=== PATIENT | male | born 2000 | race Hispanic/Latino ===

== ENCOUNTER 2023-12-20 01:09 | Emergency (ER) | payer OTHER, SELFPAY ==
[2023-12-20 01:10] VITALS: BP 139/69
[2023-12-20 01:27] VITALS: BMI 25.4
[2023-12-20 02:01] LABS: Urine Albumin Negative (Neg - Trace); Urine Bilirubin Negative (Negative); Urine Character Clear (Clear); Urine Color Yellow; Urine Glucose Negative (Negative); Urine Ketone Negative (Negative); Urine Leukocyte Negative (Negative); Urine Nitrite Negative (Negative); Urine Occult Blood Negative (Negative); Urine Specific Gravity 1.005 (<1.030); Urine Urobilinogen Negative (Neg - 1+); Urine pH 6.5 (5.0-9.0)
[2023-12-20 02:01] LABS: COVID-19 Antigen Negative (Negative)
--- NOTE | 2023-12-20 02:25 | ED.GENMED ---
History of Present Illness
General
Chief Complaint: Cold/Flu/URI Symptoms
Source: patient
Exam Limitations: none
Time Seen by Provider: 12/20/23 01:50
Nursing documentation reviewed up to this point in time: agreed with
Travel History
Have you had any contact with someone who has COVID-19?: No
Do you have any symptoms of coronavirus? Fever > 100 degrees, chills, cough, shortness of breath, sore throat, loss of taste or smell, muscle aches, or headache?: No
History of Present Illness
History of Present Illness:
Patient presents to ED secondary to 3-day history of fever, chills, body ache, headache, and intermittent cough. Denies neck pain. Denies sore throat. Denies nausea, vomiting, or diarrhea. Denies sick contact. Denies recent travel. Denies loss
of appetite. Patient states that he has been drinking plenty water at home.
Review of Systems
Review of Systems
Allergies reviewed?: Yes
All Other Systems: ROS reviewed and negative except as documented in HPI and ROS
Constitutional: Reports fever and chills
EENT: Reports no symptoms
Respiratory: Reports cough; Denies trouble breathing
Cardiac: Reports no symptoms
ABD/GI: Reports no symptoms; Denies vomiting or diarrhea
Musculoskeletal: Reports muscle pain
Skin: Reports no symptoms
Neurological: Reports headache
Phy Exam
Physical Exam
Physical Exam:
Physical Exam
General: mild distress, not acutely ill. febrile.
Head: nc/at. eomi
Neck: supple. no meningeal signs.
Heart: s1/s2 regular rate and rhythm, no murmur. equal radial pulses.
Lungs: no acute respiratory distress. clear bilaterally
Abdomen: normal bowel sounds. not tender.
Neuro: alert and oriented. no focal neurological deficits
Skin: no rash
Psychiatric: well kept. interactive and cooperative
Extremities: no edema. no calf tenderness.
Course
Orders/Labs/Results
Orders:
Orders
12/20/23 01:29
COVID-19 Antigen Urgent
Source: Nasal Swab
Influenza A+B Rapid Molecular Urgent
ELISE Source: Nasal Swab
Specimen Description:
12/20/23 01:53
Urine Culture Reflexed from UA [Urinalysis Reflex To Culture] Urgent
Date Specimen was Collected: 12/20/23
Time Specimen was Collected: 01:49
12/20/23 02:26
Ibuprofen [Motrin] 400 mg PO NOW STA
Vital Signs
Initial and Last Documented VS:
Initial Vital Signs
Temp Pulse Resp BP
101.7 F H 106 22 139/69
12/20/23 01:10 12/20/23 01:10 12/20/23 01:10 12/20/23 01:10
Last Documented Vital Signs
Temp Pulse Resp BP Pulse Ox
100.7 F H 92 20 114/64 98
12/20/23 02:38 12/20/23 02:38 12/20/23 02:38 12/20/23 02:38 12/20/23 02:38
MDM/Problems Addressed
MDM/Problems Addressed:
History and exam consistent with influenza. Otherwise, patient is hemodynamically stable and nontoxic-appearing, without any acute respiratory distress. As patient is within treatment window, patient will be given prescription for Tamiflu, along
with PCP follow-up as an outpatient.
*Critical Care Note
Total Time (30-74mins, 75-104mins- exclusive of procedures): Not Applicable
ED Attending Note
-
Portions of this chart may have been created with voice recognition software.� Occasional wrong word or��sound alike� substitutions may have occurred due to the inherent limitations of voice recognition software.
Discharge Plan
Departure
Patient Disposition: Home (Routine Discharge)
Date of Disposition: 12/20/23
Time of Disposition: 02:25
Patient with high blood pressure during this ER visit?: Yes
Condition: Good
Discharge Problem:
Influenza
Instructions: Flu, Adult (DC), Oseltamivir
Prescriptions:
New
oseltamivir [Tamiflu] 75 mg capsule
75 mg PO BID 5 Days Qty: 10 0RF
No Action
methylphenidate HCl [Concerta] 36 mg Tablet Extended Release 24hr
36 mg PO DAILY
sertraline
200 mg PO DAILY
Referrals:
PRIVATE,PHYSICIAN [Family Provider] -
Activity Restrictions/Additional Instructions:
As discussed, please follow-up with your primary care physician with any further concerns.
Interventions
Interventions:
*Risk Screen - Suicide Last Done: 12/20/23 01:10
*General Assessment Last Done: 12/20/23 01:37
*Neglect/Abuse Screening Last Done: 12/20/23 01:10
ED- Fall Risk Assessment Last Done: 12/20/23 01:37
*ED COVID-19 Vaccine History Last Done: 12/20/23 01:37
*Nursing Disposition Last Done: 12/20/23 02:42
ED- Neurological Assessment Last Done: 12/20/23 01:37
ED- Pulmonary Assessment Last Done: 12/20/23 01:37
ED-Skin Assessment Last Done: 12/20/23 01:58
Discharge Date and Time
Discharge Date/Time: 12/20/23 02:42
[2023-12-20] MEDS: MOTRIN 400 MG PO (02:33)
[2023-12-20 02:38] VITALS: BP 114/64
== END 2023-12-20 02:42 | disposition home or self-care (01) ==
LOC: EMR 01:09
PROVIDERS: Emergency Medicine; EMERGENCY PHYSICIAN Emergency Medicine
DX: J11.1 Influenza due to unidentified influenza virus with other respiratory manifestations (principal); R03.0 Elevated blood-pressure reading, without diagnosis of hypertension
CPT/HCPCS: 99283; 81003; 87502; 87811

== ENCOUNTER 2024-11-25 18:19 | Emergency (ER) | payer OTHER, SELFPAY ==
[2024-11-25 18:24] VITALS: BP 123/70
--- NOTE | 2024-11-25 18:48 | ED.GENMED ---
History of Present Illness
General
Chief Complaint: Psychiatric Problem
Source: patient
Exam Limitations: none
Time Seen by Provider: 11/25/24 18:31
History of Present Illness
History of Present Illness:
See MDM
Past History
Past History
ED Past Medical History: Psychiatric
ED Past Surgical History: None
Social History
Tobacco: Non-smoker
Alcohol: None
Phy Exam
Physical Exam
Physical Exam:
See MDM
Course
Orders/Labs/Results
Orders:
Orders
11/25/24 18:26
1:1 Observation - Suicide/ Violent Behavior As Directed
Crisis Consult Urgent
Reason for Consult: +SI
11/25/24 18:47
Lorazepam [Ativan] 0.5 mg PO NOW STA
Vital Signs
Initial and Last Documented VS:
Initial Vital Signs
Temp Pulse Resp BP Pulse Ox
98 F 71 20 123/70 98
11/25/24 18:24 11/25/24 18:24 11/25/24 18:24 11/25/24 18:24 11/25/24 18:24
Last Documented Vital Signs
Temp Pulse Resp BP Pulse Ox
98 F 71 20 123/70 98
11/25/24 18:24 11/25/24 18:24 11/25/24 18:24 11/25/24 18:24 11/25/24 18:24
MDM/Problems Addressed
Differential Diagnosis Includes:
HPI and MDM Narrative:
24-year-old male presenting with mother for crisis evaluation. Patient has been dealing with depression all of his life. He had stopped taking his medicine in the past. He has been dealing with loneliness and isolation recently. Patient states
he does not have actual suicidal ideations as if he would self-harm. However, patient thinks about not living often. He even goes on to say that he would not mind if a spring intern killed him or he got into a fist fight and that way. He also
would not mind if he got into a fist fight and killed someone else and was sentenced to life in residential.
His mom at bedside states that he has been isolating himself. Patient states he has been finding comfort in isolation recently
Will have crisis evaluate but patient is to going to inpatient psych
Physical exam
General: Sitting in bed without acute
HEENT: protecting airway
Neck: appears supple
CV: No evidence of cyanosis
Resp: No accessory muscle use
Abd: Non-distended
Extremities: No deformities
Neuro: alert
Psych: Flat depressed affect
Skin: Intact
Problems Addressed including Acute and Chronic Conditions affecting care:
1. Major depression
Acuity: acute
Prognosis: stable
Details: Given the thoughts of not living and finding comfort in having someone else kill him, we will have crisis evaluate for placement
Updates
Patient evaluated by crisis and psychiatry. Psychiatry indicating that much of this is chronic and suggested outpatient workup rather than inpatient psych
Differential Diagnosis (but not limited to): Major depression, bipolar
Testing considered: Blood work
Drug therapy (if applicable): OTC meds, please see d/c instruction regarding Rx drugs
Amount and/or Complexity of Data Reviewed
Clinical info obtained from: Patient. Mother states he has been isolating himself more
External data reviewed: N/A
Labs I independently reviewed (but not limited to): N/A
Radiology: N/A
Pulse Ox: not hypoxic
EKG independently reviewed: N/A
Riveter Helper: N/A
Critical Care: N/A
Risk of Complication:
Social Determinants of health: Good social support
Discussed with other providers: Crisis
Escalation of Care includes Admit/Obs: Will have crisis evaluate for placement
Occasional wrong word or 'sound a like' substitutions may have occurred due to the inherent limitations of voice recognition software. Read the chart carefully and recognize, using context, where substitutions have occurred.
*Critical Care Note
Total Time (30-74mins, 75-104mins- exclusive of procedures): Not Applicable
ED Attending Note
-
Portions of this chart may have been created with voice recognition software.� Occasional wrong word or��sound alike� substitutions may have occurred due to the inherent limitations of voice recognition software.
Discharge Plan
Departure
Patient Disposition: Home (Routine Discharge)
Date of Disposition: 11/25/24
Time of Disposition: 18:54
Patient with high blood pressure during this ER visit?: No
Discharge Problem:
Depression
Prescriptions:
No Action
methylphenidate HCl [Concerta] 36 mg Tablet Extended Release 24hr
36 mg PO DAILY
sertraline
200 mg PO DAILY
oseltamivir [Tamiflu] 75 mg capsule
75 mg PO BID 5 Days Qty: 10 0RF
Activity Restrictions/Additional Instructions:
Please do not hesitate to come back to the emergency department if you change your mind and want to go to an inpatient psychiatric unit. Please talk to your doctor and your therapist as soon as possible.
Interventions
Interventions:
*Risk Screen - Suicide Last Done: 11/25/24 18:25
*General Assessment Last Done: 11/25/24 18:24
*Neglect/Abuse Screening Last Done: 11/25/24 18:24
*ED COVID-19 Vaccine History Last Done: 11/25/24 20:31
ED-Psychological Assessment Last Done: 11/25/24 20:31
Discharge Date and Time
Print Language: BAHAMIAN
== END 2024-11-25 22:03 | disposition home or self-care (01) ==
LOC: EMR 18:19
PROVIDERS: EMERGENCY PHYSICIAN Student in an Organized Health Care Education/Training Program; FAMILY PHYSICIAN Internal Medicine
DX: F33.2 Major depressive disorder, recurrent severe without psychotic features (principal); R45.851 Suicidal ideations; F41.9 Anxiety disorder, unspecified; Z87.891 Personal history of nicotine dependence
CPT/HCPCS: 99283

== ENCOUNTER 2024-11-26 17:02 | Emergency (ER) | payer OTHER, SELFPAY ==
[2024-11-26 17:29] VITALS: BP 121/70
--- NOTE | 2024-11-26 18:04 | ED.GENMED ---
History of Present Illness
General
Chief Complaint: Crisis Evaluation
Source: patient and records
Exam Limitations: none
Time Seen by Provider: 11/26/24 18:00
Nursing documentation reviewed up to this point in time: agreed with
History of Present Illness
History of Present Illness:
24-year-old male with a past medical history as noted presents to the emergency room for suicidal ideation�he is requesting inpatient psychiatric treatment. He says that he has had passive wish/intrusive thoughts of suicidal ideation for
quite some time. He mentioned he feels lonely and isolated and that this has not changed since last night. He says that he would never actually attempt to harm himself or anyone else but that he has intrusive thoughts and feels that he would like
to address them. It sounds like last night he was hesitant to accept treatment but he returns today because he feels it is the best thing for him. He denies any drug or alcohol use. He denies any physical complaints today. He says he previously
had been on psychiatric medications but has not been on anything for quite some time.
Past History
Past History
ED Past Medical History: Psychiatric
ED Past Surgical History: None
Social History
Tobacco: Non-smoker
Alcohol: None
Review of Systems
Review of Systems
All Other Systems: ROS reviewed and negative except as documented in HPI and ROS
Psychiatric: Reports depression, anxiety and suicidal; Denies hallucinations
Phy Exam
Physical Exam
Physical Exam:
General: Well appearing and non-toxic
HEENT: protecting airway
Neck: appears supple
CV: No evidence of cyanosis
Resp: No accessory muscle use
Abd: Non-distended
Extremities: No deformities
Neuro: Alert
Psych: Normal affect, depressed mood, reasonable insight and judgment and generally forward thinking
Skin: Intact
Scores
Heart Failure Risk
Heart Failure Risk Score: Not Applicable
Heart Score for Chest Pain Patients
STEMI patient?: Not applicable
Withdrawal Assessment of Alcohol
Withdrawal Assessment Completed?: Not applicable
Course
Orders/Labs/Results
Orders:
Orders
11/26/24 17:15
1:1 Observation - Suicide/ Violent Behavior As Directed
Crisis Consult Urgent
Reason for Consult: Suicidial ideation
Vital Signs
Initial and Last Documented VS:
Initial Vital Signs
Temp Pulse Resp BP Pulse Ox
37.3 C 79 16 121/70 98
11/26/24 17:29 11/26/24 17:29 11/26/24 17:29 11/26/24 17:29 11/26/24 17:29
Last Documented Vital Signs
Temp Pulse Resp BP Pulse Ox
37.3 C 79 16 121/70 98
11/26/24 17:29 11/26/24 17:29 11/26/24 17:29 11/26/24 17:29 11/26/24 17:29
MDM/Problems Addressed
Differential Diagnosis Includes:
Suicidal ideation
MDM/Problems Addressed:
24-year-old male returns to the emergency room for suicidal ideation�he wishes to pursue inpatient psychiatric treatment. He has no physical complaints. Vitals and exam as above. Case discussed with crisis, they will perform assessment and work
towards voluntary inpatient treatment.
Chronic conditions affecting care:
Depression
*Pulse Oximetry
Patient hypoxic: no
*Critical Care Note
Total Time (30-74mins, 75-104mins- exclusive of procedures): Not Applicable
Data Reviewed
Source: patient and records
Patient Management
Discussion with other providers: Other (Discussed with crisis staff)
Escalation/DeEscalation of care consider admission/obs:
Inpatient psychiatric treatment
ED Attending Note
-
Portions of this chart may have been created with voice recognition software.� Occasional wrong word or��sound alike� substitutions may have occurred due to the inherent limitations of voice recognition software.
Discharge Plan
Departure
Patient Disposition: Psych Facility
Date of Disposition: 11/26/24
Time of Disposition: 18:07
Discharge Problem:
Suicidal ideation
Prescriptions:
No Action
methylphenidate HCl [Concerta] 36 mg Tablet Extended Release 24hr
36 mg PO DAILY
sertraline
200 mg PO DAILY
oseltamivir [Tamiflu] 75 mg capsule
75 mg PO BID 5 Days Qty: 10 0RF
Interventions
Interventions:
*Risk Screen - Suicide Last Done: 11/26/24 17:07
*General Assessment Last Done: 11/26/24 17:29
*Neglect/Abuse Screening Last Done: 11/26/24 17:29
*ED COVID-19 Vaccine History Last Done: 11/26/24 17:29
Discharge Date and Time
Print Language: BULGARIAN
== END 2024-11-27 03:23 ==
LOC: EMR 17:02
PROVIDERS: EMERGENCY PHYSICIAN Emergency Medicine
DX: F32.A Depression, unspecified (principal); R45.851 Suicidal ideations
CPT/HCPCS: 99285

== ENCOUNTER 2024-12-22 17:26 | Emergency (ER) | payer OTHER, SELFPAY ==
[2024-12-22 17:28] VITALS: BP 132/77
[2024-12-22 17:55] VITALS: BMI 25.1
--- NOTE | 2024-12-22 18:04 | ED.GENMED ---
History of Present Illness
General
Chief Complaint: Crisis Evaluation
Time Seen by Provider: 12/22/24 17:50
History of Present Illness
History of Present Illness:
24-year-old male with history of anxiety and depression presenting for suicidal ideations and homicidal ideations. Patient reports symptoms for the past few weeks. Notes that he was recently discharged from [facility] a few weeks ago for the
same issue. Upon discharge was feeling better, however then relapsed. He is on Seroquel denies specific intention or plan. Denies acute medical complaint such as chest pain, abdominal pain, shortness of breath, nausea, vomiting.
Past History
Past History
ED Past Medical History: Psychiatric
ED Past Surgical History: None
Social History
Tobacco: Non-smoker
Alcohol: None
Phy Exam
Physical Exam
Physical Exam:
General: Well-appearing, no clinical signs of dehydration, nontoxic and in no acute distress
HEENT: protecting airway
Neck: appears supple
CV: Normal heart rate
Resp: No accessory muscle use, no increased work of breathing
Abd: no distension
Extremities: No deformities, no swelling
Neuro: alert, no focal neurologic deficit
: deferred
Rectal: deferred
Psych: Normal affect
Skin: Intact
Course
Orders/Labs/Results
Orders:
Orders
12/22/24 17:39
1:1 Observation - Suicide/ Violent Behavior As Directed
Crisis Consult Urgent
Reason for Consult: +si/hi
Vital Signs
Initial and Last Documented VS:
Initial Vital Signs
Temp Pulse Resp BP Pulse Ox
98.1 F 96 16 132/77 97
12/22/24 17:28 12/22/24 17:28 12/22/24 17:28 12/22/24 17:28 12/22/24 17:28
Last Documented Vital Signs
Temp Pulse Resp BP Pulse Ox
98.1 F 96 16 132/77 97
12/22/24 17:28 12/22/24 17:28 12/22/24 17:28 12/22/24 17:28 12/22/24 17:28
MDM/Problems Addressed
MDM/Problems Addressed:
24-year-old male with history of anxiety and depression presenting for suicidal ideation. Vital signs are normal.
On exam patient is resting comfortably, no acute medical complaints. Denies present plan. He is agreeable to going to a facility. Pending crisis consultation. Patient is sitting with his father currently, on one-to-one observation
19:50 -patient seen by crisis, recommending [facility] for IOP. Patient and father at bedside in agreement with plan. Feel stable for discharge. Strict return precautions communicated and and father verbalized understanding
*Critical Care Note
Total Time (30-74mins, 75-104mins- exclusive of procedures): Not Applicable
ED Attending Note
-
Portions of this chart may have been created with voice recognition software.� Occasional wrong word or��sound alike� substitutions may have occurred due to the inherent limitations of voice recognition software.
Discharge Plan
Departure
Prescriptions:
No Action
quetiapine [Seroquel] 50 mg Tablet
50 mg PO BID
Referrals:
UNKNOWN - PT NOT,INTERVIEWE [Family Provider] -
Interventions
Interventions:
*Risk Screen - Suicide Last Done: 12/22/24 17:28
*General Assessment Last Done: 12/22/24 17:57
*Neglect/Abuse Screening Last Done: 12/22/24 17:28
ED-Psychological Assessment Last Done: 12/22/24 18:45
Discharge Date and Time
Print Language: BAHRAINI
== END 2024-12-22 20:37 | disposition home or self-care (01) ==
LOC: EMR 17:26
PROVIDERS: EMERGENCY PHYSICIAN Student in an Organized Health Care Education/Training Program
DX: F32.A Depression, unspecified (principal)
CPT/HCPCS: 99282

== ENCOUNTER 2025-02-10 20:37 | Emergency (ER) | payer OTHER, SELFPAY ==
[2025-02-10 20:43] VITALS: BP 137/110
[2025-02-10 21:31] LABS: % Basophils 0.3 % (0-2); % Eosinophils 0.3 % (0-6); % Immature Granulocytes 0.5 % (0-0.5); % Lymphocytes 7.9 % (20.5-51.1); % Monocytes 8.4 % (1.7-9.3); % Neutrophils 82.6 % (42.2-75.2); Absolute Immature Granulocytes 0.1 10^3/uL (0-0.05); Absolute Lymphocytes 0.9 10^3/uL (1.2-3.4); Absolute Neutrophils 9.7 10^3/uL (1.4-6.5); Hematocrit 42.5 % (39.0-52.0); Hemoglobin 15.8 g/dL (13.0-18.0); Mean Corp Hgb Conc. 37.2 g/dL (33.0-37.0); Mean Corpuscular Hgb 31.9 pg (27.0-31.0); Mean Corpuscular Volume 85.9 fL (80.0-94.0); Mean Platelet Volume 10.5 fL (7.4-10.4); Nucleated Red Blood Cells % 0 % (-); Platelet Count 187 10^3/uL (130-400); Red Blood Cell Count 4.95 10^6/uL (4.70-6.10); Red Cell Dist. Width 12.4 % (11.5-14.5); White Blood Cell Count 11.8 10^3/uL (4.8-10.8)
[2025-02-10 21:45] LABS: Blood Urea Nitrogen 10 mg/dl (9-20); Calcium 9.7 mg/dl (8.4-10.2); Carbon Dioxide 24 mmol/L (22-30); Chloride 106 mmol/L (98-107); Glucose 93 mg/dl (70-99); Potassium 3.7 mmol/L (3.5-5.1); Sodium 142 mmol/L (135-145); eGFR > 60.00
[2025-02-10 21:47] LABS: Alcohol None Detected
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
[2025-02-10 23:40] VITALS: BP 110/59
--- NOTE | 2025-02-11 00:07 | EDRN ---
the pt remains calm and cooperative with staff. the pts parents have left the pts bedside and went home. The pt appears to be asleep. 2:1 observation is maintained by a social security assessor.
Per ER Dr Campbell verbal order to this HVAC JOURNEYMAN, the pt can remain on 2:1 observation for pt safety at this time. Should the pt injure himself or be violent with others, then the pt may require 1:1 observation per the ER attendings discretion.
will continue to monitor this pt closely.
[2025-02-11 08:04] VITALS: BP 138/80; BMI 23.7
[2025-02-11 09:06] LABS: Amphetamines Negative (Negative); Barbiturates Negative (Negative); Benzodiazepines Positive (Negative); Buprenorphine Negative (Negative); Cocaine Negative (Negative); Marijuana Negative (Negative); Methadone Negative (Negative); Methamphetamines Negative (Negative); Opiates Negative (Negative); Phencyclidine Negative (Negative); Tricyclic Antidepressants Positive (Negative)
[2025-02-11 09:18] LABS: Fentanyl, Urine Negative (Negative)
--- NOTE | 2025-02-11 14:06 | ED.CRISIS ---
ED Crisis Note
ED Crisis Note
Subjective:
Pt without complaints
Objective:
Pt alert, awake, and cooperative. No events reported overnight.
Assessment/Plan:
Currently 201, but with backup [address] Awaiting psychiatric consultation with likely transition to in-patient psychiatric facility for further evaluation and treatment
--- NOTE | 2025-02-11 15:50 | W.PN.UPDATE ---
Update Note
Progress Note Update
Pt seen, reviewed with Crisis. Pt presented for voluntary treatment for self-injurious behavior- punches self in the face. Pt has tried treatment at facilities- [facility], reports he was in [place] and recently discharged from [facility]
a couple days ago. Pt states he was led to believe Crisis could get him into a specialized program for 'OCD', which is what pt states he has. Now that he understands this is not a realistic option, pt would like to return home to pursue
specialized therapy. Pt reports he had the first session with a psychologist who specializes in OCD, prior to coming in.
MSE: alert, oriented, calm, cooperative. Bilateral black-eyes. Makes good eye contact. Speech articulate, thought circumstantial. No signs of psychosis. No agitation. Pt denies any suicidal ideation. Insight limited to fair
Imp: Unspecified mood d/o with recent self-injurious behavior, none noted since arrival in ED. Suspect borderline personality traits
Rec: Outpatient therapy. Pt does not present grounds for involuntary inpatient treatment/302
Pt appears psychiatrically stable for discharge
[2025-02-11 16:04] VITALS: BP 132/78
--- NOTE | 2025-02-11 16:53 | ED.CRISIS ---
ED Crisis Note
ED Crisis Note
Subjective:
remains calm
Assessment/Plan:
Currently 201, but with backup [address] Awaiting psychiatric consultation with likely transition to in-patient psychiatric facility for further evaluation and treatment.
16:53 general farmworker informed me pt has been evaluated by Dr. Rivas. He has cleared pt for outpatient therapy. Pt can be discharged from his perspective.
== END 2025-02-11 17:30 | disposition home or self-care (01) ==
LOC: EMR 20:37
PROVIDERS: Emergency Medicine; CONSULT PHYSICIAN Psychiatry & Neurology Psychiatry; EMERGENCY PHYSICIAN Emergency Medicine; FAMILY PHYSICIAN Internal Medicine
DX: S00.12XA Contusion of left eyelid and periocular area, initial encounter (principal); S00.11XA Contusion of right eyelid and periocular area, initial encounter; X83.8XXA Intentional self-harm by other specified means, initial encounter; F32.A Depression, unspecified; F42.9 Obsessive-compulsive disorder, unspecified; F90.9 Attention-deficit hyperactivity disorder, unspecified type; F41.9 Anxiety disorder, unspecified
CPT/HCPCS: 99284; 70450; 70486; 80048; 80306; 80307; 82077; 85025